=== PATIENT | male | born 1965 | race Caucasian/White ===

== ENCOUNTER 2019-03-17 09:18 | Outpatient (REF) | payer MEDICAID, SELFPAY ==
[2019-03-17 22:22] LABS: Anion Gap 11.6 mmol/L (3-11); BUN 6 mg/dL (7-18); CO2 26.4 mmol/L (21.0-32.0); CREATININE 0.87 mg/dL (0.70-1.30); Chloride 101 mmol/L (98-107); Glucose 130 mg/dL (70-100); Potassium 4.3 mmol/L (3.5-5.1); Sodium 139 mmol/L (136-145)
== END 2019-03-17 09:38 ==
LOC: NCHCN 09:18
PROVIDERS: Visit Provider Registered Nurse
DX: R03.0 Elevated blood-pressure reading, without diagnosis of hypertension (principal)
CPT/HCPCS: 80048

== ENCOUNTER 2021-01-23 17:15 | Outpatient (REF) | payer MEDICAID, SELFPAY ==
[2021-01-23 13:37] LABS: ALT 57 U/L (16-63); AST 35 U/L (15-37); Albumin 3.6 g/dL (3.4-5.0); Alkaline Phosphatase 119 U/L (46-116); BUN 5 mg/dL (7-18); Bilirubin, Total 0.4 mg/dL (0.2-1.0); CREATININE 0.9 mg/dL (0.70-1.30); Calcium 8.7 mg/dL (8.5-10.1); Chloride 99 mmol/L (98-107); Glucose 130 mg/dL (74-106); Potassium 4.2 mmol/L (3.5-5.1); Sodium 137 mmol/L (136-145); Total Protein 7.2 g/dL (6.4-8.2)
[2021-01-25 14:29] LABS: GGT 74 U/L (15-85)
== END 2021-01-23 17:16 | disposition home or self-care (01) ==
LOC: NCHCN 17:15
PROVIDERS: Visit Provider Nurse Practitioner Family
DX: K76.0 Fatty (change of) liver, not elsewhere classified (principal)
CPT/HCPCS: 80053; 82977

== ENCOUNTER 2025-03-18 22:01 | Outpatient (REF) | payer MEDICAID, SELFPAY ==
[2025-03-18 21:53] LABS: ALT 36 U/L (16-63); AST 29 U/L (15-37); Albumin 3.7 g/dL (3.4-5.0); Alkaline Phosphatase 99 U/L (46-116); Anion Gap 6.2 mmol/L (3-11); BUN 9 mg/dL (7-18); Bilirubin, Total 0.6 mg/dL (0.2-1.0); CO2 29.8 mmol/L (21.0-32.0); Calcium 9.0 mg/dL (8.5-10.1); Calculated LDL 116 mg/dL (<100); Chloride 96 mmol/L (98-107); Cholesterol 180 mg/dL (<200); Estimated GFR 101.95 (mL/min/1.73m2); Glucose 105 mg/dL (74-106); HDL Cholesterol 50 mg/dL (>or=40); Potassium 4.3 mmol/L (3.5-5.1); Sodium 132 mmol/L (136-145); Total Protein 7.7 g/dL (6.4-8.2); Triglyceride 73 mg/dL (<150)
[2025-03-18 21:54] LABS: Hemoglobin A1C 5.4 % (<5.7)
[2025-03-21 09:29] LABS: PSA, Screening 9.4 ng/mL (<=3.5)
== END 2025-03-18 22:02 | disposition home or self-care (01) ==
LOC: NCHCN 22:01
PROVIDERS: PCP Nurse Practitioner Family; Visit Provider Family Medicine
DX: Z00.00 Encounter for general adult medical examination without abnormal findings (principal); Z12.5 Encounter for screening for malignant neoplasm of prostate
CPT/HCPCS: 80053; 80061; 84153; 83036